=== PATIENT | male | born 1970 | race Caucasian/White ===

== ENCOUNTER 2022-03-13 13:20 | Emergency (ER) | payer BC ==
[~2022-03-13] VITALS: Ht 190.5 cm; Wt 96.4 kg
[2022-03-13 13:59] VITALS: TEMP 98
[2022-03-13 14:30] LABS: COLLECTION METHOD CLEAN CATCH
[2022-03-13 14:41] LABS: MUCOUS Present (NOT PRESENT); PH 6 (5-8); SQUAMOUS EPITHELIAL 0-2 /hpf (0-10); URINE APPEARANCE Clear (CLEAR/HAZY); URINE BACTERIA None Seen /hpf (NONE SEEN); URINE BILIRUBIN Negative (NEGATIVE); URINE BLOOD Negative (NEGATIVE); URINE COLOR Yellow (YELLOW); URINE GLUCOSE Negative (NEGATIVE); URINE KETONE Trace (NEGATIVE); URINE LEUKOCYTE ESTERASE Negative (NEGATIVE); URINE NITRATE Negative (NEGATIVE); URINE PROTEIN(semi-quant) Negative (NEGATIVE); URINE RBC 0-2 /hpf (0-2); URINE UROBILINOGEN Negative (NEGATIVE)
[2022-03-13] MEDS ORDERED: OMNICEF 300MG300 MG PO (14:59)
[2022-03-13 15:23] VITALS: BP 122/67; PULSE 72
== END 2022-03-13 15:23 | disposition home or self-care (01) ==
LOC: COL.ER 13:20
PROVIDERS: Physician Assistant
DX: R30.0 Dysuria (principal); R39.15 Urgency of urination; N39.0 Urinary tract infection, site not specified; Z88.1 Allergy status to other antibiotic agents

== ENCOUNTER 2022-03-15 08:54 | Emergency (ER) | payer BC ==
[~2022-03-15] VITALS: Ht 190.5 cm; Wt 95.5 kg
[~2022-03-15 08:54] MED LIST: OMNICEF 300MG300 MG PO
[2022-03-15 09:10] VITALS: TEMP 97.9
[2022-03-15] MEDS ORDERED: ADDERALL20 MG PO (09:13)
[2022-03-15] MEDS ORDERED: CIALIS5 MG PO (09:13)
[2022-03-15] MEDS ORDERED: WELLBUTRIN SR150 M1 PO (09:13)
[2022-03-15 09:17] LABS: COLLECTION METHOD CLEAN CATCH
[2022-03-15 09:28] LABS: BASO # 0.1 K/mm3 (0.0-0.2); BASO % 1.1 % (0.0-2.0); EOS # 0.3 K/mm3 (0.0-0.7); EOS % 5.5 % (0.0-4.0); GRAN # 2.4 K/mm3 (1.4-6.5); GRAN % 42.6 % (42.2-75.2); HEMATOCRIT 43.3 % (42.0-52.0); HEMOGLOBIN 14.6 g/dl (13.5-18.0); LYMPH # 2.2 K/mm3 (1.2-3.4); LYMPH % 38.4 % (20.0-51.0); MEAN CELL VOLUME 85 fl (80.0-100.0); MEAN CORPUSCULAR HEMOGLOBIN 29 pg (27-31); MEAN CORPUSCULAR HGB CONC 34 g/dl (33.0-37.0); MONO # 0.7 K/mm3 (0.1-0.6); MONO % 12.2 % (1.7-9.3); PLATELET COUNT 307 K/mm3 (130-400); RED BLOOD COUNT 5.12 M/mm3 (4.20-5.60); REDCELL DISTRIBUTION WIDTH-CV 14.4 % (11.5-14.5)
[2022-03-15 09:37] LABS: PH 6 (5-8); URINE APPEARANCE Clear (CLEAR/HAZY); URINE BILIRUBIN Negative (NEGATIVE); URINE BLOOD Negative (NEGATIVE); URINE COLOR Yellow (YELLOW); URINE GLUCOSE Negative (NEGATIVE); URINE KETONE Negative (NEGATIVE); URINE LEUKOCYTE ESTERASE Negative (NEGATIVE); URINE NITRATE Negative (NEGATIVE); URINE PROTEIN(semi-quant) 1+ (NEGATIVE); URINE UROBILINOGEN Negative (NEGATIVE)
[2022-03-15 09:38] LABS: SQUAMOUS EPITHELIAL 0-2 /hpf (0-10); URINE RBC None Seen /hpf (0-2)
[2022-03-15 09:45] LABS: BILIRUBIN,TOTAL 0.7 mg/dL (0.2-1.2); CREATININE, serum 1.11 mg/dL (0.72-1.25); POTASSIUM 3.9 mmol/L (3.5-4.5); TOTAL PROTEIN 6.8 gm/dL (6.2-8.1)
[2022-03-15] MEDS ORDERED: FLOMAX 0.40.4 MG/CAP PO (10:53)
[2022-03-15] MEDS ORDERED: MIRALAX510G PO (10:54)
[2022-03-15 11:03] VITALS: BP 108/75; PULSE 67
== END 2022-03-15 11:02 | disposition home or self-care (01) ==
LOC: COL.ER 08:54
PROVIDERS: Emergency Medicine
DX: R33.9 Retention of urine, unspecified (principal); N39.0 Urinary tract infection, site not specified; Z79.2 Long term (current) use of antibiotics
CPT/HCPCS: Q9967

== ENCOUNTER 2022-06-22 01:21 | Emergency (ER) | payer BC ==
[~2022-06-22] VITALS: Ht 190.5 cm; Wt 100.0 kg
[~2022-06-22 01:21] MED LIST changes: +ADDERALL20 MG PO; +CIALIS5 MG PO; +FLOMAX 0.40.4 MG/CAP PO; +MIRALAX510G PO; +WELLBUTRIN SR150 M1 PO
[2022-06-22 01:33] VITALS: TEMP 98
[2022-06-22 01:47] LABS: BASO # 0.1 K/mm3 (0.0-0.2); BASO % 0.9 % (0.0-2.0); EOS # 0.5 K/mm3 (0.0-0.7); EOS % 6.4 % (0.0-4.0); GRAN # 3.3 K/mm3 (1.4-6.5); GRAN % 39.2 % (42.2-75.2); HEMATOCRIT 39.6 % (42.0-52.0); HEMOGLOBIN 13.7 g/dl (13.5-18.0); LYMPH # 3.3 K/mm3 (1.2-3.4); LYMPH % 39.1 % (20.0-51.0); MEAN CELL VOLUME 89 fl (80.0-100.0); MEAN CORPUSCULAR HEMOGLOBIN 31 pg (27-31); MEAN CORPUSCULAR HGB CONC 35 g/dl (33.0-37.0); MEAN PLATELET VOLUME 8.9 fl (7.4-10.4); MONO # 1.2 K/mm3 (0.1-0.6); MONO % 14.2 % (1.7-9.3); PLATELET COUNT 308 K/mm3 (130-400); RED BLOOD COUNT 4.43 M/mm3 (4.20-5.60); REDCELL DISTRIBUTION WIDTH-CV 13.7 % (11.5-14.5)
[2022-06-22 02:05] LABS: ALANINE AMINOTRANSFERASE 13 U/L (0-55); ALBUMIN 3.8 gm/dL (3.5-5.0); ALKALINE PHOSPHATASE 103 U/L (40-150); ANION GAP 11 mmol/L (7-16); AST,SGOT 15 U/L (5-34); BILIRUBIN,TOTAL 0.8 mg/dL (0.2-1.2); BLOOD UREA NITROGEN 19 mg/dL (8-26); CALCIUM 9.5 mg/dL (8.4-10.2); CARBON DIOXIDE 28 mmol/L (22-29); CHLORIDE 102 mmol/L (98-107); CREATININE, serum 1.29 mg/dL (0.72-1.25); GLUCOSE 103 mg/dL (70-99); POTASSIUM 3.5 mmol/L (3.5-4.5); SODIUM 141 mmol/L (136-145); TOTAL PROTEIN 6.6 gm/dL (6.2-8.1)
[2022-06-22 02:16] LABS: C-REACTIVE PROTEIN 0.35 mg/dL (0.00-0.50); LIPASE 36 U/L (8-78); TROPONIN-I < 0.010 ng/mL (0.00-0.033)
[2022-06-22 03:43] VITALS: BP 110/54; PULSE 58
[2022-06-22] MEDS ORDERED: PROTONIX 40MG T40 MG PO (06:26)
[2022-06-22] MEDS ORDERED: MAALOX ADVANCE148 ML PO (06:26)
== END 2022-06-22 03:43 | disposition home or self-care (01) ==
LOC: COL.ER 01:21
PROVIDERS: Nurse Practitioner
DX: R10.13 Epigastric pain (principal); R10.11 Right upper quadrant pain
CPT/HCPCS: J1170; J1885; J2405; Q9967

== ENCOUNTER 2022-06-22 05:08 | Emergency (ER) | payer BC ==
[~2022-06-22] VITALS: Ht 190.5 cm; Wt 100.0 kg
[2022-06-22 05:08] VITALS: TEMP 98.7
[2022-06-22] MEDS ORDERED: MAALOX ADVANCE148 ML PO (06:26)
[2022-06-22] MEDS ORDERED: PROTONIX 40MG T40 MG PO (06:26)
[2022-06-22 06:31] VITALS: BP 106/61; PULSE 57
== END 2022-06-22 06:39 | disposition home or self-care (01) ==
LOC: COL.ER 05:08
DX: K29.70 Gastritis, unspecified, without bleeding (principal)
CPT/HCPCS: C9113

== ENCOUNTER → 2022-09-11 | Outpatient (CLI) | payer OTHER, BC ==
[~2022-09-11] MED LIST changes: +MAALOX ADVANCE148 ML PO; +PROTONIX 40MG T40 MG PO
== END ==
LOC: COL.RAD 11:14
DX: K82.9 Disease of gallbladder, unspecified (principal)

== ENCOUNTER 2024-10-25 14:54 | Emergency (ER) | payer BC ==
[~2024-10-25] VITALS: Ht 190.5 cm; Wt 100.0 kg
[2024-10-25 15:00] VITALS: TEMP 98.1
[2024-10-25] MEDS ORDERED: NORCO 325 MG-51 TAB PO (16:40)
[2024-10-25 16:45] VITALS: BP 124/65; PULSE 79
== END 2024-10-25 16:35 | disposition home or self-care (01) ==
LOC: COL.ER 14:54
DX: M23.641 Other spontaneous disruption of lateral collateral ligament of right knee (principal)
CPT/HCPCS: 31869; L1830; L1846